=== PATIENT | female | born 1965 | race Caucasian/White ===

== ENCOUNTER 2018-01-22 11:44 | Day surgery (SDC) | payer OTHER ==
[~2018-01-22] VITALS: Ht 160 cm; Wt 109.3 kg
[~2018-01-22 11:44] MED LIST: HERBAL SUPPLEMENTS; MULVITA PO
[2018-01-22] MEDS ORDERED: ALBU90OI6 (12:24)
[2018-01-22] MEDS ORDERED: VITAMIN D32000 UNIT (12:24)
[2018-01-22] MEDS ORDERED: Hair, Skin & N1 EACH (12:24)
[2018-01-22] MEDS ORDERED: CONEST.625 (12:25)
[2018-01-22] MEDS ORDERED: Diclofenac Sodi50 MG (12:25)
== END 2018-01-22 14:05 | disposition home or self-care (01) ==
LOC: ORSCSDS 11:44
PROVIDERS: Internal Medicine Gastroenterology
PROC: 0DBK8ZX Excision of Ascending Colon, Via Natural or Artificial Opening Endoscopic, Diagnostic (ICD-10-PCS; principal; 2018-01-22 13:00)
PROC: 0DBN8ZX Excision of Sigmoid Colon, Via Natural or Artificial Opening Endoscopic, Diagnostic (ICD-10-PCS; principal; 2018-01-22 13:00)
DX: Z12.11 Encounter for screening for malignant neoplasm of colon (principal); D12.5 Benign neoplasm of sigmoid colon; D12.2 Benign neoplasm of ascending colon; K64.8 Other hemorrhoids; K58.9 Irritable bowel syndrome, unspecified; F32.9 Major depressive disorder, single episode, unspecified; J45.909 Unspecified asthma, uncomplicated; Z87.891 Personal history of nicotine dependence; Z79.899 Other long term (current) drug therapy
CPT/HCPCS: 88305; J7120

== ENCOUNTER 2018-02-02 06:17 | Day surgery (SDC) | payer OTHER ==
[~2018-02-02] VITALS: Ht 160 cm; Wt 110.0 kg
[~2018-02-02 06:17] MED LIST changes: +ALBU90OI6; +CONEST.625; +Diclofenac Sodi50 MG; +Hair, Skin & N1 EACH; +VITAMIN D32000 UNIT
== END 2018-02-02 10:13 | disposition home or self-care (01) ==
LOC: ORSCSDS 06:17
PROVIDERS: Podiatrist Foot & Ankle Surgery
PROC: 0LBN0ZZ Excision of Right Lower Leg Tendon, Open Approach (ICD-10-PCS; principal; 2018-02-02 07:30)
PROC: 0L8N0ZZ Division of Right Lower Leg Tendon, Open Approach (ICD-10-PCS; principal; 2018-02-02 07:30)
DX: M76.61 Achilles tendinitis, right leg (principal); J45.909 Unspecified asthma, uncomplicated; E66.01 Morbid (severe) obesity due to excess calories; Z68.41 Body mass index [BMI] 40.0-44.9, adult; Z79.899 Other long term (current) drug therapy
CPT/HCPCS: J0690; J1100; J1885; J2250; J2405; J2710; J2765; J3010; J7120

== ENCOUNTER 2023-02-11 09:53 | Emergency (ER) | payer OTHER ==
[~2023-02-11] VITALS: Ht 160 cm; Wt 117.9 kg
[2023-02-11 10:06] VITALS: BP 178/88
[2023-02-11] MEDS ORDERED: CYCL10 PO (12:13)
[2023-02-11] MEDS ORDERED: KETO10 PO (12:13)
[2023-02-11] MEDS ORDERED: LIDO700A20 TOP (12:13)
== END 2023-02-11 12:21 | disposition home or self-care (01) ==
LOC: ER 09:53
DX: M75.32 Calcific tendinitis of left shoulder (principal); J45.909 Unspecified asthma, uncomplicated; Z88.1 Allergy status to other antibiotic agents; Z88.8 Allergy status to other drugs, medicaments and biological substances; Z88.6 Allergy status to analgesic agent; Z88.4 Allergy status to anesthetic agent; Z79.890 Hormone replacement therapy; Z79.51 Long term (current) use of inhaled steroids; Z79.899 Other long term (current) drug therapy; Z87.891 Personal history of nicotine dependence; Z91.81 History of falling
CPT/HCPCS: 73030; 93005; 93010; 96372; 99283-25; A9270; J1885

== ENCOUNTER → 2023-05-13 | Outpatient (CLI) | payer OTHER ==
[~2023-05-13] MED LIST changes: +CYCL10 PO; +KETO10 PO; +LIDO700A20 TOP
== END ==
LOC: LAB SHORT 16:22 → LAB 16:22
DX: N39.0 Urinary tract infection, site not specified (principal)
CPT/HCPCS: 87086

== ENCOUNTER 2024-04-03 09:58 | Day surgery (SDC) | payer OTHER | END 2024-04-13 03:03 | disposition home or self-care (01) | LOC: MOI MAM 09:58 | DX: N60.12 Diffuse cystic mastopathy of left breast (principal) | CPT/HCPCS: 19081; 88305; A4648 ==

== ENCOUNTER → 2024-06-12 | Outpatient (CLI) | payer OTHER | END | disposition home or self-care (01) | LOC: LAB SHORT 19:23 → LAB 19:23 | DX: N39.0 Urinary tract infection, site not specified (principal) | CPT/HCPCS: 87077; 87086; 87186 ==

== ENCOUNTER → 2024-07-31 | Outpatient (CLI) | payer OTHER | LOC: LAB SHORT 12:05 → LAB 12:05 | DX: N39.0 Urinary tract infection, site not specified (principal) | CPT/HCPCS: 87077; 87086; 87186 ==